=== PATIENT | male | born 1975 | race Caucasian/White ===

== ENCOUNTER 2016-04-17 13:33 | Emergency (ER) | payer OTHER ==
[~2016-04-17] VITALS: Wt 145.0 kg
[2016-04-17] MEDS ORDERED: LOSA100T7 PO (14:45)
[2016-04-17] MEDS ORDERED: ONDANSETRON 4 MG INJ IV STA (15:25)
[2016-04-17] MEDS ORDERED: LIDOCAINE/MYLANTA 40 ML BTL PO STA (15:25)
[2016-04-17] MEDS ORDERED: SOD CHLORIDE 0.9% 1,000 ML IV STA (15:25)
[2016-04-17] MEDS ORDERED: morphine 4 MG/ML VIAL IV STA (15:25)
[2016-04-17] MEDS ORDERED: BELLADONNA/PHENOBARBITAL TAB PO STA (15:25)
[2016-04-17] MEDS ORDERED: FAMOTIDINE 20 MG TAB PO STA (15:25)
[2016-04-17 15:35] LABS: BASOPHIL # 0.1 10^3/ul (0.0-0.1); BASOPHILS % 0.5 % (0.0-2.0); EOSINOPHILS # 0.2 10^3/ul (0.0-0.5); EOSINOPHILS % 1.7 % (0.0-7.0); HEMATOCRIT 42.5 % (42.0-52.0); HEMOGLOBIN 14.2 g/dl (14.0-18.0); INR 0.98; LYMPHOCYTES # 1.7 10^3/ul (0.8-2.9); LYMPHOCYTES % 15.9 % (15.0-51.0); MEAN CORPUSCULAR HEMOGLOBIN 28.3 pg (29.0-33.0); MEAN CORPUSCULAR HGB CONC 33.4 g/dl (32.0-37.0); MEAN CORPUSCULAR VOLUME 84.8 fl (82.0-101.0); MEAN PLATELET VOLUME 8.8 fl (7.4-10.4); MONOCYTE # 0.7 10^3/ul (0.3-0.9); MONOCYTES % 6.9 % (0.0-11.0); PLATELET COUNT 260 10^3/UL (140-440); RED BLOOD COUNT 5.01 10^6/ul (4.70-6.10); RED CELL DISTRIBUTION WIDTH 13.6 % (11.5-14.5); UNCORRECTED WBC 10.6 10^3/ul (4.8-10.8); WHITE BLOOD COUNT 10.6 10^3/ul (4.8-10.8)
[2016-04-17 15:38] LABS: CONDITION 1
[2016-04-17 15:40] LABS: ALBUMIN 4.5 g/dl (3.3-4.9); POTASSIUM 4.3 mmol/L (3.5-5.1)
[2016-04-17 15:42] LABS: BILIRUBIN,INDIRECT 0.8 mg/dl (0-1.1); BILIRUBIN,TOTAL 0.8 mg/dl (0.2-1.3); CREATININE 0.85 mg/dl (0.61-1.24)
[2016-04-17 15:43] LABS: ALBUMIN/GLOBULIN RATIO 0.95; CALCIUM 9.3 mg/dl (8.4-10.2); TOTAL PROTEIN 9.2 g/dl (6.1-8.1)
[2016-04-17] MEDS ORDERED: KETOROLAC 15 MG INJ IV STA (16:28)
--- NOTE | 2016-04-17 17:29 | RADRPT ---
PROCEDURE: Abdominal ultrasound CLINICAL INDICATION: Abdominal pain TECHNIQUE: Palm scale, color Doppler, and spectral Doppler ultrasound images of the right upper qu adrant. COMPARISON: None FINDINGS: Pancreas: Poorly visualized. Liver: Morphology: Right lobe of the liver measures the upper limits of normal in length measuring 18.7 c m. Echogenicity: Increased echogenicity of the liver parenchyma suggestive of hepatic steatosis. Focal lesions: None. Main portal vein: Patent with hepatopetal flow. Biliary System: Normal appearing gallbladder wall. No gallstones seen. No intra or extra-hepatic biliary dilatation. Common bile duct measures 4.0 mm in maximal dimension. Kidneys: Right 11.6 cm in length. Normal echogenicity. No hydronephrosis. No focal lesions or renal calculi. No free fluid identified. IMPRESSION: Increased echogenicity of the liver parenchyma suggestive of hepatic steatosis. Normal gallbladder. No gallstones. RPTAT: AADD .Rajan Jimenez MD, MD Date Time Electronically viewed and signed by .Rajan Jimenez MD, on 04/17/2016 17:28 .B/
[2016-04-17] MEDS ORDERED: FAMO40TA52 PO (17:35)
[2016-04-17] MEDS ORDERED: IBUP-1542 PO (17:35)
[2016-04-17] MEDS ORDERED: MAG355OR14 PO (17:35)
--- NOTE | 2016-04-17 17:38 | ERD ---
ER Documentation Chief Complaint Date/Time DATE: 04/17/16 TIME: 17:37 Chief Complaint RIGHT UPPER QUADRANT AP SINCE LAST NIGHT GETTING WORSE TODAY HPI 41-year-old man complaining of epigastric and right upper quadrant abdominal pain since last night constant nonradiating nonexertional precipitated by eating steak, mashed potatoes, and fried onion rings [employer] last night. He has had similar episodes in the past and does have a history of gastritis and previous pancreatitis. Patient states he was previously an alcoholic and has a history of cirrhosis as well. Patient denies melena or blood per rectum, no vomiting or diarrhea, no chest pain or shortness of breath. ROS All systems reviewed and are negative except as per history of present illness. Medications Home Meds Active Scripts Famotidine* (Famotidine*) 40 Mg Tablet, 40 MG PO HS, #30 TAB Prov:TREVOR PHILLIP MD 04/17/16 Mag Hydrox/Al Hydrox/Simeth (Maalox Advanced Suspension) 355 Ml Oral.susp, 2 TSP PO TID for PAIN, #24 OZ Prov:TREVOR PHILLIP MD 04/17/16 Ibuprofen* (Motrin*) 600 Mg Tab, 600 MG PO Q8 Y for PAIN, #30 TAB Prov:TREVOR PHILLIP MD 04/17/16 Reported Medications Losartan Potassium* (Losartan Potassium*) 100 Mg Tablet, 100 MG PO DAILY, TAB 04/17/16 Allergies Allergies: Coded Allergies: Penicillins (Verified Allergy, Severe, 04/17/16) PMhx/Soc Previous alcoholism, history of cirrhosis, gastritis, chronic recurrent abdominal pain, hypertension, previous pancreatitis History of Surgery: Yes (ankle surgery; back surgery) Hx Cardiac Disorders: Yes (hypertension) Hx Miscellaneous Medical Probl: Yes (cirrhosis; pancreatitis) Hx Alcohol Use: Yes (used to drink alcohol) Hx Substance Use: Yes (marijuana) Hx Tobacco Use: No Smoking Status: Never smoker FmHx Family History: No diabetes Physical Exam Vitals Vital Signs Date Time Temp Pulse Resp B/P Pulse Ox O2 Delivery O2 Flow Rate FiO2 04/17/16 16:16 87 19 133/94 99 Room Air 04/17/16 13:39 98.5 115 20 148/83 99 Physical Exam GENERAL: Well-developed, well-nourished, well-hydrated, in no apparent distress , looks nontoxic in appearance HEENT: Moist mucous membranes, pink conjunctiva, no cervical spine tenderness or step-off deformities, no goiter, no jaundice or icterus, extraocular movements intact without pain. No submandibular induration, and no pharyngeal erythema NEURO: Alert and oriented 3, cranial nerves II through XII intact bilaterally, pupils equal round reactive to light, no focal deficits or facial asymmetry, sensation intact distally Strength 5/5 in upper and lower extremities bilaterally CARDIAC: Regular rate and rhythm, no murmurs rubs or gallops LUNGS: Clear bilaterally no wheezing crackles or stridor ABDOMEN: Soft nontender, no guarding, no rigidity, no rebound, no psoas sign no obturator sign. Normoactive bowel sounds SKIN: Warm and dry to touch, no abrasions, contusions, or hematomas, no lacerations, no ecchymosis, no target lesions, and without ulcers EXTREMITIES: No clubbing cyanosis or edema, calves are bilaterally symmetrical, no Homans sign, no popliteal cord sign. Distal pulses equal and bilateral PSYCH: Normal affect without agitation or irritability Result Diagram: 04/17/16 1500 04/17/16 1500 Results 24 hrs Laboratory Tests Test 04/17/16 15:00 Alanine Aminotransferase (ALT/SGPT) 50IU/L Albumin 4.5g/dl Albumin/Globulin Ratio 0.95 Alkaline Phosphatase 169IU/L Anion Gap 18 Aspartate Amino Transf (AST/SGOT) 44IU/L Basophils # 0.110^3/ul Basophils % 0.5% Blood Morphology Comment Blood Urea Nitrogen 14mg/dl Calcium Level 9.3mg/dl Carbon Dioxide Level 26mmol/L Chloride Level 103mmol/L Creatinine 0.85mg/dl Direct Bilirubin 0.00mg/dl Eosinophils # 0.210^3/ul Eosinophils % 1.7% Globulin 4.70g/dl Glucose Level 99mg/dl Hematocrit 42.5% Hemoglobin 14.2g/dl INR International Normalized Ratio 0.98 Indirect Bilirubin 0.8mg/dl Lipase 46U/L Lymphocytes # 1.710^3/ul Lymphocytes % 15.9% Mean Corpuscular Hemoglobin 28.3pg Mean Corpuscular Hemoglobin Concent 33.4g/dl Mean Corpuscular Volume 84.8fl Mean Platelet Volume 8.8fl Monocytes # 0.710^3/ul Monocytes % 6.9% Neutrophils # 8.010^3/ul Neutrophils % 75.0% Nucleated Red Blood Cells # 0.010^3/ul Nucleated Red Blood Cells % 0.0/100WBC Platelet Count 84222^3/UL Potassium Level 4.3mmol/L Prothrombin Time 13.0Sec Prothrombin Time Ratio 1.0 Red Blood Count 5.0110^6/ul Red Cell Distribution Width 13.6% Sodium Level 143mmol/L Total Bilirubin 0.8mg/dl Total Protein 9.2g/dl White Blood Count 10.610^3/ul Current Medications Medications (Trade) Dose Ordered Sig/Karina Route PRN Reason Start Time Stop Time Status Last Admin Dose Admin Sodium Chloride (NS) 1,000 ml @ 1,000 mls/hr Q1H STAT IV 04/17/16 15:25 04/17/16 16:24 DC 04/17/16 15:33 Morphine Sulfate (morphine) 4 mg ONCE STAT IV 04/17/16 15:25 04/17/16 15:26 DC 04/17/16 15:32 Ondansetron HCl (Zofran Inj) 4 mg ONCE STAT IV 04/17/16 15:25 04/17/16 15:26 DC 04/17/16 15:33 Famotidine (Pepcid) 40 mg ONCE STAT PO 04/17/16 15:25 04/17/16 15:26 DC 04/17/16 15:33 Miscellaneous Medication (Gi Cocktail (2)) 40 ml ONCE STAT PO 04/17/16 15:25 04/17/16 15:26 DC 04/17/16 15:32 Belladonna/ Phenobarbital () 2 tab ONCE STAT PO 04/17/16 15:25 04/17/16 15:26 DC 04/17/16 15:37 Clonidine (Catapres) 0.1 mg ONCE ONCE PO 04/17/16 15:30 04/17/16 15:31 DC Ketorolac Tromethamine (Toradol) 15 mg ONCE STAT IV 04/17/16 16:28 04/17/16 16:29 DC 04/17/16 16:35 Procedures/MDM IV line was established patient was placed on case monitor rhythm strip revealed a sinus rhythm at about 80 bpm. Patient was afebrile. I administered 1 L normal saline intravenously, morphine 4 mg IV, Zofran 4 mg IV , GI cocktail 50 cc p.o., famotidine 40 mg p.o., and later Toradol 50 mg IV with good effect. Gallbladder ultrasound was negative for gallstones. Please refer to radiologist dictation for full report. CBC and electrolytes were normal, liver function tests were unremarkable except for slight elevation in alkaline phosphatase. Coagulation profile was normal. Abdominal examination was repeated by me after medications were administered and just prior to discharge. Belly exam remained benign and vital signs were normal. Differential diagnoses considered, included but not limited to acute coronary syndrome, pulmonary embolism, aortic dissection, abdominal aortic aneurysm, sepsis, stroke, meningitis, encephalitis, pneumonia, appendicitis, cholecystitis , bowel obstruction, pyelonephritis, nephrolithiasis, cystitis, as well as metabolic, hematologic, and electrolyte abnormalities. As well as abscess, cellulitis, fractures, and dislocations. Patient feels much better at this time, and vital signs are normal, symptoms have improved. I did give strict instructions to return to the ED if symptoms continue or worsen, patient will otherwise follow-up with primary care physician. Patient understood instructions and agreed to plan. Departure Diagnosis: Primary Impression: Cirrhosis Hepatic cirrhosis type: alcoholic cirrhosis Ascites presence: without ascites Qualified Code: K70.30 - Alcoholic cirrhosis of liver without ascites Additional Impressions: Abdominal pain Abdominal location: epigastric Qualified Code: R10.13 - Epigastric pain Gastritis Gastritis type: superficial Chronicity: acute Gastritis bleeding: without bleeding Qualified Code: K29.00 - Acute superficial gastritis without hemorrhage Hypertension Hypertension type: essential hypertension Qualified Code: I10 - Essential hypertension Condition: Good Patient Instructions: Abdominal Pain, Cirrhosis of the Liver TREVOR PHILLIP MD Apr 17, 2016 17:38
[2016-04-17 18:05] VITALS: BP 126/65; PULSE 74; RESP 19; TEMP 98.3
== END 2016-04-17 18:05 | disposition home or self-care (01) ==
LOC: E/R 13:33
DX: K70.30 Alcoholic cirrhosis of liver without ascites (principal); R10.13 Epigastric pain; K29.00 Acute gastritis without bleeding; I10 Essential (primary) hypertension
CPT/HCPCS: 36415; 76705; 80053; 83690; 85025; 85610; 96374; 96375; J1885; J2270; J2405; J7030; Z7502; Z7610

== ENCOUNTER 2017-08-31 22:46 | Emergency (ER) | END 2017-09-01 01:45 | disposition home or self-care (01) ==

== ENCOUNTER 2018-09-02 20:46 | Emergency (ER) | payer OTHER ==
[~2018-09-02] VITALS: Ht 188 cm; Wt 131.6 kg
[~2018-09-02 20:46] MED LIST: DIC20 PO; FAMO40TA5 PO; IBUP-1542 PO; LOSA100T15 PO; MAG355OR14 PO; ONDA4TAB14 PO
[2018-09-02 21:07] VITALS: BP 169/100; PULSE 89; RESP 18; Ht 188 cm; Wt 131.6 kg
[2018-09-02] MEDS ORDERED: DOXY100T20 PO (23:26)
[2018-09-02] MEDS ORDERED: CLOT30CR24 TOP (23:26)
--- NOTE | 2018-09-03 01:29 | ERD ---
ER Documentation Chief Complaint Chief Complaint on and off penile swelling x 2 months HPI 43-year-old male with no significant past medical history presenting to the emergency department with complaints of redness and pain to the hands penis intermittently for the past 2 months but worsening today. He also reports some white residue around the area. He denies any penile discharge, testicular pain, dysuria, fevers, chills, or other symptoms at this time. Patient is sexually active with his and they are reportedly monogamous. ROS All systems reviewed and are negative except as per history of present illness. Medications Home Meds Active Scripts Clotrimazole* (Clotrimazole* AF) 1% - 30 Gm Cream.gm., 1 APPLIC TOP BID for 7 Days, #1 TUB Prov:DIPAK CALDERON PA-C 09/02/18 Doxycycline Hyclate* (Doxycycline Hyclate*) 100 Mg Tablet.dr, 100 MG PO BID for 10 Days, TAB Prov:DIPAK CALDERON PA-C 09/02/18 Ibuprofen* (Motrin*) 600 Mg Tab, 600 MG PO Q6H PRN for PAIN AND OR ELEVATED TEMP, #30 TAB Prov:NIDA DACOSTA NP 09/01/17 Ondansetron (Ondansetron Odt) 4 Mg Tab.rapdis, 4 MG PO Q6H PRN for NAUSEA AND/OR VOMITING, #20 TAB Prov:NIDA DACOSTA CLIENT RETENTION SPECIALIST 09/01/17 Dicyclomine HCl (Dicyclomine HCl) 20 Mg Tablet, 1 TAB PO Q6, #20 Prov:NIDA DACOSTA CLIENT RETENTION SPECIALIST 09/01/17 Famotidine* (Famotidine*) 40 Mg Tablet, 40 MG PO HS, #30 TAB Prov:TREVOR PHILLIP MD 04/17/16 Mag Hydrox/Al Hydrox/Simeth (Maalox Advanced Suspension) 355 Ml Oral.susp, 2 TSP PO TID for PAIN, #24 OZ Prov:TREVOR PHILLIP MD 04/17/16 Ibuprofen* (Motrin*) 600 Mg Tab, 600 MG PO Q8 PRN for PAIN, #30 TAB Prov:TREVOR PHILLIP MD 04/17/16 Reported Medications Losartan Potassium* (Losartan Potassium*) 100 Mg Tablet, 100 MG PO DAILY, TAB 04/17/16 Allergies Allergies: Coded Allergies: Penicillins (Verified Allergy, Severe, 08/31/17) PMhx/Soc History of Surgery: Yes (ankle surgery; back surgery) Hx Cardiac Disorders: Yes (hypertension) Hx Miscellaneous Medical Probl: Yes (cirrhosis; pancreatitis) Hx Alcohol Use: Yes (used to drink alcohol) Hx Substance Use: Yes (marijuana) Hx Tobacco Use: No FmHx Family History: No diabetes Physical Exam Vitals Vital Signs Date Temp Pulse Resp B/P (MAP) Pulse Ox O2 O2 Flow FiO2 Time Delivery Rate 09/02/18 98.0 89 18 169/100 99 21:07 (123) Physical Exam Const: No acute distress Head: Atraumatic Eyes: Normal Conjunctiva ENT: Normal External Ears, Nose and Mouth. Neck: Full range of motion. No meningismus. Resp: No respiratory distress. Skin: No petechiae or rashes Exam: Penis: Glans penis is erythematous and there is white residue noted. No evidence of phimosis or paraphimosis. Scrotum: Normal Hernia: None Lymph: No inguinal lymphadenopathy Discharge: None Back: No midline or flank tenderness Ext: No cyanosis, or edema Neur: Awake and alert Psych: Normal Mood and Affect Procedures/MDM 43-year-old male presenting to the emergency department with signs and symptoms most consistent with balanitis. No evidence of testicular torsion, penile discharge, paraphimosis, phimosis, or other emergencies. Patient will be treated as an outpatient with prescriptions. He was advised to have close primary care follow-up and return the department immediately for any new or worsening or concerning symptoms. Patient was in agreement with the diagnosis, plan, need for follow-up, return precautions. Patient's blood pressure was elevated (>120/80) but appears stable without evidence of hypertension emergency or urgency. The patient is to follow-up and pursue outpatient monitoring and therapy with their primary care physician within 1 week and return immediately if they have any new, worsening, or concerning symptoms. Departure Diagnosis: Primary Impression: Balanitis Condition: Fair Patient Instructions: Balanitis Referrals: COMM[facility] YOU HAVE RECEIVED A MEDICAL SCREENING EXAM AND THE RESULTS INDICATE THAT YOU DO NOT HAVE A CONDITION THAT REQUIRES URGENT TREATMENT IN THE EMERGENCY DEPARTMENT. FURTHER EVALUATION AND TREATMENT OF YOUR CONDITION CAN WAIT UNTIL YOU ARE SEEN IN YOUR DOCTORS OFFICE WITHIN THE NEXT 1-2 DAYS. IT IS YOUR RESPONSIBILITY TO MAKE AN APPOINTMENT FOR FOLOW-UP CARE. IF YOU HAVE A PRIMARY DOCTOR --you should call your primary doctor and schedule an appointment IF YOU DO NOT HAVE A PRIMARY DOCTOR YOU CAN CALL OUR PHYSICIAN REFERRAL HOTLINE AT IF YOU CAN NOT AFFORD TO SEE A PHYSICIAN YOU CAN CHOSE FROM THE FOLLOWING [facility] [address] [facility] [address] [facility] [address] [facility] [address] [facility]. [facility] [address] [facility] [facility]. [address] Additional Instructions: Call your primary care doctor TOMORROW for an appointment during the next 1-2 days.See the doctor sooner or return here if your condition worsens before your appointment time. DIPAK CALDERON PA-C Sep 03, 2018 01:28
== END 2018-09-02 23:42 | disposition home or self-care (01) ==
LOC: FTE 20:46
DX: N48.1 Balanitis (principal); I10 Essential (primary) hypertension
CPT/HCPCS: 99283